=== PATIENT | female | born 1980 | race Caucasian/White ===

== ENCOUNTER 2019-06-11 16:49 | Emergency (ER) | payer OTHER ==
[2019-06-11 16:59] VITALS: BP 119/81
--- NOTE | 2019-06-11 17:03 | ER Document Report ---
ED Medical Screen (RME) - General Chief Complaint: Hip Pain Stated Complaint: LEFT HIP PAIN Time Seen by Provider: 06/11/19 16:59 Mode of Arrival: Ambulatory Information source: Patient Notes: 38-year-old female presents emergency department with left hip pain. Reports history of hip replacement 6 years ago. Reports she just moved here from [place] and thinks she overdid it. Denies trauma. Reports pain left hip shooting into her thigh. I have greeted and performed a rapid initial assessment of this patient. A comprehensive ED assessment and evaluation of the patient, analysis of test results and completion of the medical decision making process will be conducted by additional ED providers. Dictation of this chart was performed using voice recognition software; therefore, there may be some unintended grammatical errors. - Related Data Allergies/Adverse Reactions: No Known Allergies Allergy (Verified 06/11/19 16:59) Physical Exam - Vital signs Vitals: Temp Pulse Resp BP Pulse Ox 98.0 F 107 H 19 119/81 71 L 06/11/19 16:54 06/11/19 16:54 06/11/19 16:54 06/11/19 16:54 06/11/19 16:54 Course - Vital Signs Vital signs: Temp Pulse Resp BP Pulse Ox 98.0 F 107 H 19 119/81 71 L 06/11/19 16:54 06/11/19 16:54 06/11/19 16:54 06/11/19 16:54 06/11/19 16:54
--- NOTE | 2019-06-11 17:22 | RADIOLOGY REPORT (SQ) ---
EXAM DESCRIPTION: HIP LEFT AP/LATERAL COMPLETED DATE/TIME: 06/11/2019 5:12 pm REASON FOR STUDY: pain COMPARISON: None. NUMBER OF VIEWS: Two views. TECHNIQUE: AP pelvis and additional frog-leg view of the left hip. LIMITATIONS: None. FINDINGS: MINERALIZATION: Normal. LEFT HIP: Intact prosthesis. RIGHT HIP: No fracture or dislocation. No worrisome bone lesions. PUBIS AND ISCHIUM: No fracture. PELVIS: No fracture. SACRUM: No fracture or dislocation. No worrisome bone lesions. LOWER LUMBAR SPINE: No fracture or dislocation. No worrisome bone lesions. No significant disc disea se. SOFT TISSUES: No findings. OTHER: No other significant finding. IMPRESSION: INTACT LEFT HIP PROSTHESIS. NO SIGNIFICANT FINDINGS. TECHNICAL DOCUMENTATION: JOB ID: [id number] [email or web address] Rights Reserved Reading location - IP/workstation name: [email or web address]
--- NOTE | 2019-06-11 17:50 | ER Document Report ---
HPI - HPI Time Seen by Provider: 06/11/19 16:59 Pain Level: 4 Notes: 38-year-old female presents for evaluation of left hip pain and "grinding", states that she did have a hip replacement done approximately 6 years ago, states at some point she would need a revision. Denies any trauma to her hip. Denies any numbness or tingling down bilateral lower extremities, patient had her hip managed at previous doctor which is not located in [place], she is new to the area. Denies fevers, chills, chest pain,palpitations, shortness of breath, dyspnea, nausea, vomiting, diarrhea, abdominal pain, hematuria,blurred vision, double vision, loss of vision, speech changes, LH, dizziness, syncope, headaches, , weakness, bowel or bladder dysfunction, saddle anesthesia, numbness or tingling in bilateral upper or lower extremities equally, muscle paralysis, weakness in bilateral upper or lower extremities equally or rash - REPRODUCTIVE Reproductive: DENIES: : Past Medical History - General Information source: Patient - Social History Smoking Status: Never Smoker Chew tobacco use (# tins/day): No Frequency of alcohol use: None Drug Abuse: None Family History: Reviewed & Not Pertinent Patient has suicidal ideation: No Patient has homicidal ideation: No Vertical Provider Document - CONSTITUTIONAL Agree With Documented VS: Yes Exam Limitations: No Limitations General Appearance: WD/WN Notes: PHYSICAL EXAMINATION: GENERAL: Well-appearing, well-nourished and in no acute distress. HEAD: Atraumatic, normocephalic. EYES: Pupils equal round and reactive to light, extraocular movements intact, conjunctiva are normal. ENT: Nares patent, oropharynx clear without exudates. Moist mucous membranes. NECK: Normal range of motion, supple without lymphadenopathy LUNGS: Breath sounds clear to auscultation bilaterally and equal. No wheezes rales or rhonchi. HEART: Regular rate and rhythm without murmurs ABDOMEN: Soft, nontender, nondistended abdomen. No guarding, no rebound. No masses appreciated. Female : deferred Musculoskeletal: Normal range of motion, no pitting or edema. No cyanosis. left hip noted pain with hip rotation, no ecchymosis. dtr + 2 bilaterally and equally in BLE. full motor and sensory function. normal gait. cap refill < 3 seconds. distal pulses + 2 in BLE. lower back examination wnl. No erythema, warmth to touch, deformity, crepitus or obvious asymmetry of the affected leg compared to other of hips equally. NEUROLOGICAL: Cranial nerves grossly intact. Normal speech, normal gait. Normal sensory, motor exams PSYCH: Normal mood, normal affect. SKIN: Warm, Dry, normal turgor, no rashes or lesions noted. - INFECTION CONTROL TRAVEL OUTSIDE OF THE [place] IN LAST 30 DAYS: No Course - Re-evaluation Re-evalutation: 06/11/19 19:19 Afebrile vital stable no distress. Patient is established with pain management in [place], she states she did not bring enough pain medication while she was out here because she is staying longer than anticipated, discussed with patient that due to the fact she is in a pain management contract, we cannot prescribe her any narcotic medication. Discussed with patient's that understood her frustration however since her x-ray of her hip is negative for fracture, and the fact that she is already in conjunction with the pain management provider, cannot prescribe her controlled substances at this time, but we can offer her a shot of Toradol. Discussed with patient that her x-ray was negative however she may need an MRI done by her equipment mechanic specialist and/or pain management provider in [place]. Patient was understanding that she cannot be prescribed any oral narcotic medication. Advised her to not drive, drink alcohol or operate machinery while taking muscle relaxers and cause sedation and impairment of cognitive function, advised to apply heat 20 minutes on 20 minutes off several times a day, to take naproxen as needed for inflammation. after performing a Medical Screening Examination, I estimate there is LOW risk for OPEN FRACTURE, COMPARTMENT SYNDROME, DEEP VENOUS THROMBOSIS, ACUTE TENDON RUPTURE, or NEUROVASCULAR INJURY thus I consider the discharge disposition reasonable. I have reevaluated this patient multiple times and no significant life threatening changes are noted. The patient and I have discussed the diagnosis and risks, and we agree with discharging home to closely follow-up with their primary doctor or the referral orthopedist with the understanding that symptoms and presentations can change. We also discussed returning to the Emergency Department immediately if new or worsening symptoms occur. We have discussed the symptoms which are most concerning (e.g., changing or worsening pain, numbness, weakness) that necessitate immediate return 06/11/19 19:21 - Vital Signs Vital signs: Temp Pulse Resp BP Pulse Ox 98.0 F 107 H 19 119/81 71 L 06/11/19 16:54 06/11/19 16:54 06/11/19 16:54 06/11/19 16:54 06/11/19 16:54 Discharge - Discharge Clinical Impression: Hip strain Qualifiers: Encounter type: initial encounter Laterality: left Qualified Code(s): S76.012A - Strain of muscle, fascia and tendon of left hip, initial encounter Condition: Stable Disposition: HOME, SELF-CARE Instructions: Muscle Strain ([facility]), Tendon Strain ([facility]) Additional Instructions: X-ray of the hip are negative. Apply heat 20 minutes on 20 minutes off several times a day. Stretch her hip flexors after taking naproxen and applying heat throughout the day. Do not drive, drink alcohol or operate heavy machinery while taking muscle relaxers and cause sedation and impairment of cognitive function. follow-up with equipment mechanic specialist as needed as well as your primary care provider. Return immediately for any new or worsening symptoms. Follow up with primary care provider, call tomorrow to make followup appointment. Prescriptions: Naproxen 500 mg PO BID #10 tablet Methocarbamol [Robaxin 500 mg Tablet] 500 mg PO QID PRN #15 tablet PRN Reason: Forms: Return to Work Referrals: MOHAN ELIAS MD [ACTIVE PROVISIONAL STAFF] - Follow up as needed RUFINA DOYLE MD [ACTIVE STAFF] - Follow up as needed
[2019-06-11] MEDS ORDERED: KETOROLAC TROMETHAMINE 60 MG/2 ML SDV IM ONE (18:19)
== END 2019-06-11 18:41 | disposition home or self-care (01) ==
LOC: ER 16:49
DX: S76.012A Strain of muscle, fascia and tendon of left hip, initial encounter (principal); X58.XXXA Exposure to other specified factors, initial encounter; M25.552 Pain in left hip; Z96.642 Presence of left artificial hip joint
CPT/HCPCS: 99283; 96372; 73502; J1885